=== PATIENT | male | born 1970 | race Caucasian/White ===

== ENCOUNTER 2016-07-27 22:08 | Emergency (ER) | payer OTHER ==
[~2016-07-27] VITALS: Ht 180.3 cm; Wt 118.2 kg
[2016-07-27 23:11] LABS: HEMATOCRIT 46.3 % (38.0-50.0); MCH 27.1 PG (29.0-34.0); MCHC 32.4 G/DL (30.0-36.0); MCV 83.7 FL (86-99); MEAN PLAT.VOLUME 10.8 uM^3 (9.0-12.4); PLATELET COUNT 172 K/uL (156-360); RBC DIS.WIDTH-CV 14.1 % (11.8-14.6); RBC DIS.WIDTH-SD 43.4 % (39-53); RED BLOOD COUNT 5.53 M/uL (4.00-5.50); WHITE BLOOD COUNT 19.1 K/uL (4.1-10.2)
[2016-07-27 23:26] LABS: CHLORIDE 107 mEq/L (99-109); POTASSIUM 4.2 mEq/L (3.7-5.4); SODIUM 140 mEq/L (136-147)
[2016-07-27 23:27] LABS: GLUCOSE 135 mg/dL (70-99)
[2016-07-27 23:29] LABS: ANION GAP 11 MEQ/L (2-14)
[2016-07-27 23:31] LABS: GFR ESTIMATE (CALCULATED) > 59 mL/min/
[2016-07-27 23:32] LABS: UREA NITROGEN (BUN) 12 mg/dL (9-23)
[2016-07-27] MEDS ORDERED: HYCODAN SYRUP480 ML PO (23:46)
[2016-07-27] MEDS ORDERED: VANTIN200 MG PO (23:50)
[2016-07-27] MEDS ORDERED: AZITHROMYCIN250 MG PO (23:50)
[2016-07-27 23:57] VITALS: BP 110/68
== END 2016-07-28 00:02 | disposition home or self-care (01) ==
LOC: EXP 22:08 → EME 22:08 → EXP 07-28 00:02
DX: J18.9 Pneumonia, unspecified organism (principal); D72.829 Elevated white blood cell count, unspecified; J44.9 Chronic obstructive pulmonary disease, unspecified; Z88.1 Allergy status to other antibiotic agents; Z88.2 Allergy status to sulfonamides; Z88.0 Allergy status to penicillin; Z87.891 Personal history of nicotine dependence
CPT/HCPCS: 71020; 80048; 85027; 93005; 94640; 94640 76; 99281; 99284; J0696; J7512